=== PATIENT | male | born 1990 | race Caucasian/White ===

== ENCOUNTER → 2018-08-07 | Outpatient (CLI) | payer OTHER, SELFPAY ==
[~2018-08-07] MED LIST: /QUET10TA PO; FLUO20CA8 PO; VYVA30CA5 PO
== END ==
LOC: M OUTALCOH 08:04
PROVIDERS: ATTEND Psychiatry & Neurology Psychiatry
DX: Z03.89 Encounter for observation for other suspected diseases and conditions ruled out (principal)

== ENCOUNTER → 2020-03-25 | Outpatient (CLI) | payer MEDICAID ==
[~2020-03-25] MED LIST changes: -/QUET10TA PO; +SERO1TAB PO
== END ==
LOC: M OUTALCOH 09:00
PROVIDERS: ATTEND Psychiatry & Neurology Addiction Medicine
DX: F31.30 Bipolar disorder, current episode depressed, mild or moderate severity, unspecified (principal)

== ENCOUNTER 2020-04-01 10:00 | Outpatient (RCR) | payer MEDICAID, OTHER | END 2020-04-05 | LOC: M OUTALCOH 10:00 | PROVIDERS: ATTEND Psychiatry & Neurology Addiction Medicine | DX: F10.10 Alcohol abuse, uncomplicated (principal); F17.200 Nicotine dependence, unspecified, uncomplicated ==

== ENCOUNTER → 2020-04-05 | Outpatient (REF) | payer OTHER ==
[2020-04-05 14:08] LABS: BASO % 0.7 % (0.0-1.0); EOS # 0.1 10^3/uL (0.0-0.5); EOS % 3.4 % (0.0-3.0); HEMATOCRIT 48.1 % (42.0-52.0); LYMPH # 1.6 10^3/uL (1.5-5.0); LYMPH % 38.8 % (24.0-44.0); MEAN CORPUSCULAR HEMOGLOBIN 30.9 pg (27.0-33.0); MEAN CORPUSCULAR HGB CONC 33.3 g/dl (32.0-36.5); MEAN CORPUSCULAR VOLUME 92.9 fl (80.0-96.0); MONO # 0.6 10^3/uL (0.0-0.8); MONO % 14.4 % (0.0-5.0); NEUTROPHILS # 1.8 10^3/uL (1.5-8.5); NEUTROPHILS % 42.2 % (36.0-66.0); PLATELET COUNT, AUTOMATED 274 10^3/uL (150-450); RED BLOOD COUNT 5.18 10^6/uL (4.30-6.10); WHITE BLOOD COUNT 4.2 10^3/uL (4.0-10.0)
[2020-04-05 15:00] LABS: ALBUMIN 4.6 GM/DL (3.2-5.2); ALT/SGPT 32 U/L (12-78); BILIRUBIN,TOTAL 0.8 MG/DL (0.2-1.0); BLOOD UREA NITROGEN 10 MG/DL (7-18); CALCIUM LEVEL 9.3 MG/DL (8.5-10.1); CARBON DIOXIDE LEVEL 27 MEQ/L (21-32); CHLORIDE LEVEL 105 MEQ/L (98-107); CHOLESTEROL LEVEL 254 MG/DL (<200); CHOLESTEROL RISK RATIO 5.906 (<5); CREATININE FOR GFR 0.92 MG/DL (0.70-1.30); GLOMERULAR FILTRATION RATE > 60.0 (>60); GLUCOSE, FASTING 74 MG/DL (70-100); HDL CHOLESTEROL 43 MG/DL (>40); LDL CHOLESTEROL 178 MG/DL (<100); NON-HDL-C 211 MG/DL; POTASSIUM SERUM 4.4 MEQ/L (3.5-5.1); SODIUM LEVEL 140 MEQ/L (136-145); THYROID STIMULATING HORMONE 0.788 uIU/ML (0.358-3.740); TOTAL PROTEIN 7.9 GM/DL (6.4-8.2); TRIGLYCERIDES LEVEL 165 MG/DL (<150)
== END ==
LOC: M LABDRWAD 13:29
PROVIDERS: ATTEND Hospitalist
DX: F31.30 Bipolar disorder, current episode depressed, mild or moderate severity, unspecified (principal)

== ENCOUNTER 2020-04-30 10:00 | Outpatient (RCR) | payer MEDICAID, OTHER | END 2020-05-05 | LOC: M OUTALCOH 10:00 | PROVIDERS: ATTEND Psychiatry & Neurology Addiction Medicine | DX: F10.10 Alcohol abuse, uncomplicated (principal); F17.200 Nicotine dependence, unspecified, uncomplicated ==

== ENCOUNTER 2020-06-02 13:39 | Outpatient (RCR) | payer MEDICAID, OTHER | END 2020-06-05 | LOC: M OUTALCOH 13:39 | PROVIDERS: ATTEND Psychiatry & Neurology Addiction Medicine | DX: F10.10 Alcohol abuse, uncomplicated (principal); F17.200 Nicotine dependence, unspecified, uncomplicated ==

== ENCOUNTER 2020-06-21 08:00 | Outpatient (RCR) | payer OTHER | END 2020-07-05 | LOC: M OUTALCOH 08:00 | PROVIDERS: ATTEND Psychiatry & Neurology Addiction Medicine | DX: F10.20 Alcohol dependence, uncomplicated (principal); F17.200 Nicotine dependence, unspecified, uncomplicated ==

== ENCOUNTER 2020-10-21 21:15 | Inpatient (IN) | payer OTHER ==
[~2020-10-21] VITALS: Ht 175.3 cm; Wt 68.2 kg
[2020-10-21 21:53] LABS: HEMATOCRIT 47.3 % (42.0-52.0); HEMOGLOBIN 15.8 g/dl (13.5-17.5); MEAN CORPUSCULAR HEMOGLOBIN 30.6 pg (27.0-33.0); MEAN CORPUSCULAR HGB CONC 33.4 g/dl (32.0-36.5); MEAN CORPUSCULAR VOLUME 91.5 fl (80.0-96.0); PLATELET COUNT, AUTOMATED 281 10^3/uL (150-450); RED BLOOD COUNT 5.17 10^6/uL (4.30-6.10); WHITE BLOOD COUNT 7.5 10^3/uL (4.0-10.0)
[2020-10-21 22:15] LABS: AMPHETAMINES LEVEL URINE NEGATIVE (NEGATIVE); BARBITURATES URINE NEGATIVE (NEGATIVE); BENZODIAZEPINES URINE NEGATIVE (NEGATIVE); CANNABINOIDS URINE POSITIVE (NEGATIVE); COCAINE METABOLITE URINE NEGATIVE (NEGATIVE); METHADONE URINE NEGATIVE (NEGATIVE); OPIATES URINE NEGATIVE (NEGATIVE); PHENCYCLIDINE URINE NEGATIVE (NEGATIVE)
--- NOTE | 2020-10-21 22:38 | REPVR ---
PROCEDURE INFORMATION: Exam: CT Head Without Contrast Exam date and time: 10/21/2020 10:06 PM Age: 30 years old Clinical indication: Altered mental status/memory loss; Confusion or disorientation; Additional info: New onset psychosis TECHNIQUE: Imaging protocol: Computed tomography of the head without contrast. Radiation optimization: All CT scans at this facility use at least one of these dose optimization techniques: automated exposure control; mA and/or kV adjustment per patient size (includes targeted exams where dose is matched to clinical indication); or iterative reconstruction. COMPARISON: No relevant prior studies available. FINDINGS: Limitations: Patient motion. Brain: No definite acute intracranial hemorrhage. No midline shift or intracranial mass effect. Cerebral ventricles: No hydrocephalus. Bones/joints: No definite acute calvarial fracture. Paranasal sinuses: Visualized sinuses are unremarkable. No fluid levels. Mastoid air cells: Visualized mastoid air cells are well aerated. Soft tissues: Unremarkable. IMPRESSION: Patient motion without definite acute intracranial abnormality. Electronically signed by: Kali Gatica On 10/21/2020 22:38:30 PM
[2020-10-21 22:50] LABS: ACETAMINOPHEN LEVEL < 2.0 UG/ML (10.0-30.0); ALBUMIN 4.8 GM/DL (3.2-5.2); ALT/SGPT 23 U/L (12-78); BILIRUBIN,DIRECT 0.2 MG/DL (0.0-0.2); BILIRUBIN,TOTAL 0.5 MG/DL (0.2-1.0); BLOOD UREA NITROGEN 9 MG/DL (7-18); CALCIUM LEVEL 9.4 MG/DL (8.5-10.1); CARBON DIOXIDE LEVEL 27 MEQ/L (21-32); CHLORIDE LEVEL 108 MEQ/L (98-107); CREATININE FOR GFR 0.92 MG/DL (0.70-1.30); ETHYL ALCOHOL (ETHANOL) < 0.003 % (0.000-0.010); GLOMERULAR FILTRATION RATE > 60.0 (>60); GLUCOSE, FASTING 93 MG/DL (70-100); SALICYLATE LEVEL 2.5 MG/DL (5.0-30.0); SODIUM LEVEL 142 MEQ/L (136-145)
[2020-10-21] MEDS ORDERED: SERO1TAB PO (23:07)
[2020-10-21 23:47] LABS: RSV AMPLIFICATION NEGATIVE (NEGATIVE)
[2020-10-22] MEDS ORDERED: ACETAMINOPHEN TAB 650MG DOSE (2X325MG) PO PRN (00:05)
[2020-10-22] MEDS ORDERED: MOM 30ML SUSPENSION UDC PO PRN (00:05)
[2020-10-22] MEDS ORDERED: MAALOX 30 ML SUSP *UDC PO PRN (00:05)
[2020-10-22] MEDS ORDERED: LORazepam 2 MG TAB PO ONE (00:40)
[2020-10-22 02:07] VITALS: BP 132/73
[2020-10-22 06:00] VITALS: BP 115/58
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
[2020-10-22 16:13] VITALS: BP 140/83
[2020-10-22] MEDS: QUEtiapine FUMARATE 100 MG TAB PO PRN (21:40)
[2020-10-22] MEDS: hydrOXYzine 25 MG TAB PO PRN (21:53)
[2020-10-23 06:15] VITALS: BP 106/61
[2020-10-23 16:05] VITALS: BP 120/63
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
[2020-10-23] MEDS: QUEtiapine FUMARATE 100 MG TAB PO PRN (20:25)
[2020-10-24 06:24] VITALS: BP 104/59
--- NOTE | 2020-10-24 14:21 | MHIPNPDOC ---
[facility] Progress Note Progress Note DATE OF SERVICE: 10/24/20 HISTORY: ER evaluation as follows * Pt would like to refer to himself as "Ramon" during entire interview and gets angry if called by his given name. Pt reports that his vision became clear and he now knows his true calling, pt begins to explain that God the Father is his father and his name is in fact Ramon. Pt reports that God put him on this earth because; everyone needs to get to [facility]. He also states that he has healed multiple people of cancer. Pt states that "my light fixture servicer Raven knows I'm Ramon so, I'm not sure why she called the police". Pt reports that with so much vison that God his father has given him come's great responsibility. Pt recalls a time when he feels as though God stripped him of his vision and he had no purpose in life, now that his vision is back he doesn't want to disappoint God anymore. Pt goes into great detail on how he was put on this earth to proclaim miracles. Pt denies SI/HI/Self Inj. Pt states that he has tried to kill himself on occasion, does not go into detail on how he attempted or when but, does state "I am unable to kill myself; God won't let me until my purpose is done". Pt denies AH/VH. Pt reports okay appetite however, states that he does a spiritual fast and is unable to give me a conclusive answer. Pt reports good sleep. Pt reports that he lives with his earthly father. Pt reports that he does O/P through [facility] and his counselor is Sneha. He states that he has counseling sessions via [employer] and that he feels the government . Today: Numerous conversations reveal grandiose delusions but admission note reveals paranoid delusions. Patient is calm and pleasant but we willk need to also explore his followup care and living situation. I will begin pt on antipsychotic. Determination that pt. is not manic but had schizophrenia with grandiose and paranoid delusions. VITAL SIGNS: See below. NEW TEST RESULTS: None. CURRENT MEDICATIONS: See below. MENTAL STATUS EXAMINATION: Patient is a 30-year old male, who is, calm, but with serious paranoid and grandiose delusions. Speech: Is. No gross disturbance. Language skills are. No gross disturbance. Thought processes including: That he is Ramon. That he has the cure for cancer. Thought content: Paranoid and grandiose. Abstract reasoning, and computation: able to abstract. Description of associations:. No loose association. Description of abnormal or psychotic thoughts: Grandiose and paranoid psychotic thought. Judgment:, Poor. Insight:, Limited. Orientation: 3. Recent and remote memory: Unclear what he remembers. Attention span and concentration: Intact. Language:. No gross disturbance. Fund of knowledge: Reasonable but distorted. Mood: Euthymic. Affect: Congruent DIAGNOSES: 1. Schizophrenia. 2. None. 3.. None. ASSESSMENT: As above MANAGEMENT PLAN:. Will attempt to find where this patient has been living with his previous treatment's been and what are living options., I will prescribe antipsychotics, but do not know if patient will be compliant TIME SPENT:, 25 minutes. Vital Signs Vital Signs Date Time Temp Pulse Resp B/P (MAP) Pulse Ox O2 Delivery O2 Flow Rate FiO2 10/24/20 06:24 97.7 59 16 104/59 (74) 98 Room Air Current Medications Current Medications Medications (Trade) Dose Ordered Sig/Jordan Route PRN Reason Start Time Stop Time Status Last Admin Dose Admin Acetaminophen (Tylenol Tab) 650 mg Q6HP PRN PO HEADACHE or DISCOMFORT 10/22/20 00:05 Al Hydrox/Mg Hydrox/Simethicone (Mylanta) 30 ml Q4HP PRN PO HEARTBURN/INDIGESTION 10/22/20 00:05 Home Med (Med Rec Complete!) ASDIRECTED XX 10/21/20 23:10 10/21/20 23:12 DC Hydroxyzine HCl (Atarax) 25 mg BIDP PRN PO ANXIETY 10/22/20 21:45 10/22/20 21:53 Magnesium Hydroxide (Milk Of Magnesia) 30 ml DAILYPRN PRN PO CONSTIPATION 10/22/20 00:05 Quetiapine Fumarate (SEROquel) 100 mg QHSP PRN PO INSOMNIA 10/22/20 00:05 10/23/20 20:25 Trazodone HCl (Desyrel) 50 mg QHSP PRN PO INSOMNIA 10/22/20 00:05 Allergies Coded Allergies: No Known Allergies (Unverified , 12/22/12) KALPANA MCCLOUD MD Oct 24, 2020 14:21
[2020-10-24 16:12] VITALS: BP 129/73
[2020-10-24] MEDS: QUEtiapine FUMARATE 100 MG TAB PO PRN (21:05)
[2020-10-24] MEDS: OLANZapine 10 MG TAB PO SCH (21:05)
[2020-10-25 06:38] VITALS: BP 112/59
--- NOTE | 2020-10-25 14:53 | MHIPNPDOC ---
[facility] Progress Note Progress Note DATE OF SERVICE: 10/25/20 HISTORY: Patient with grandiose and paranoid delusions, sitting quietly in his room, unclear disappointment as to where when he is discharged he will go. Began him on neuroleptics. VITAL SIGNS: See below. NEW TEST RESULTS: None. CURRENT MEDICATIONS: See below. MENTAL STATUS EXAMINATION: Patient is a 30-year old male, who is quietly sitting in his room, no longer suicidal by statement. Speech: Is clear. No disturbance. Language skills are. No gross disturbance. Thought processes including: Continues to believe that he works with the [employer] and that he is Ramon. Thought content: As above. Abstract reasoning, and computation: Able to abstract. Description of associations:. No loose associations. Description of abnormal or psychotic thoughts: Grandiose and paranoid delusions. Working with the [employer] cures for cancer and that he is Ramon. Judgment: Poor Insight: Poor Orientation: 3. Recent and remote memory: Intact. Attention span and concentration: Intact. Language:. No disturbance. Fund of knowledge: Reasonable. Mood: Euthymic. Affect:, Congruent. DIAGNOSES: 1. Undifferentiated schizophrenia. ASSESSMENT: As above MANAGEMENT PLAN:. Again neuroleptics and will seek further historical information from family. TIME SPENT:, 25 minutes. Vital Signs Vital Signs Date Time Temp Pulse Resp B/P (MAP) Pulse Ox O2 Delivery O2 Flow Rate FiO2 10/25/20 06:38 97.5 65 16 112/59 (76) 98 Room Air Current Medications Current Medications Medications (Trade) Dose Ordered Sig/Jordan Route PRN Reason Start Time Stop Time Status Last Admin Dose Admin Acetaminophen (Tylenol Tab) 650 mg Q6HP PRN PO HEADACHE or DISCOMFORT 10/22/20 00:05 Al Hydrox/Mg Hydrox/Simethicone (Mylanta) 30 ml Q4HP PRN PO HEARTBURN/INDIGESTION 10/22/20 00:05 Home Med (Med Rec Complete!) ASDIRECTED XX 10/21/20 23:10 10/21/20 23:12 DC Hydroxyzine HCl (Atarax) 25 mg BIDP PRN PO ANXIETY 10/22/20 21:45 10/22/20 21:53 Magnesium Hydroxide (Milk Of Magnesia) 30 ml DAILYPRN PRN PO CONSTIPATION 10/22/20 00:05 Olanzapine (ZyPREXA) 10 mg QHS PO 10/24/20 21:00 10/24/20 21:05 Quetiapine Fumarate (SEROquel) 100 mg QHSP PRN PO INSOMNIA 10/22/20 00:05 10/24/20 21:05 Trazodone HCl (Desyrel) 50 mg QHSP PRN PO INSOMNIA 10/22/20 00:05 Allergies Coded Allergies: No Known Allergies (Unverified , 12/22/12) KALPANA MCCLOUD MD Oct 25, 2020 14:53
[2020-10-25 18:00] VITALS: BP 140/71
[2020-10-25] MEDS: QUEtiapine FUMARATE 100 MG TAB PO PRN (20:48)
[2020-10-25] MEDS: OLANZapine 10 MG TAB PO SCH (20:48)
[2020-10-26 06:35] VITALS: BP 138/87
--- NOTE | 2020-10-26 14:34 | MHIPNPDOC ---
[facility] Progress Note Progress Note DATE OF SERVICE: HISTORY: Patient with grandiose and paranoid delusions, sitting quietly in his room, unclear disappointment as to where when he is discharged he will go. Began him on neuroleptics. Need more historical information VITAL SIGNS: See below. NEW TEST RESULTS: None. CURRENT MEDICATIONS: See below. MENTAL STATUS EXAMINATION: Patient is a 30-year old male, who is quietly sitting in his room, no longer suicidal by statement. Speech: Is clear. No disturbance. Language skills are. No gross disturbance. Thought processes including: Continues to believe that he works with the [employer] and that he is Ramon. Thought content: As above. Abstract reasoning, and computation: Able to abstract. Description of associations:. No loose associations. Description of abnormal or psychotic thoughts: Grandiose and paranoid delusions. Working with the [employer] cures for cancer and that he is Ramon. Judgment: Poor Insight: Poor Orientation: 3. Recent and remote memory: Intact. Attention span and concentration: Intact. Language:. No disturbance. Fund of knowledge: Reasonable. Mood: Euthymic. Affect:, Congruent. DIAGNOSES: 1. Undifferentiated schizophrenia. ASSESSMENT: As above MANAGEMENT PLAN:. Again neuroleptics and will seek further historical information from family. TIME SPENT:, 25 minutes. Vital Signs Vital Signs Date Time Temp Pulse Resp B/P (MAP) Pulse Ox O2 Delivery O2 Flow Rate FiO2 10/26/20 06:35 97.7 68 16 138/87 (104) 98 Room Air Current Medications Current Medications Medications (Trade) Dose Ordered Sig/Jordan Route PRN Reason Start Time Stop Time Status Last Admin Dose Admin Acetaminophen (Tylenol Tab) 650 mg Q6HP PRN PO HEADACHE or DISCOMFORT 10/22/20 00:05 Al Hydrox/Mg Hydrox/Simethicone (Mylanta) 30 ml Q4HP PRN PO HEARTBURN/INDIGESTION 10/22/20 00:05 Home Med (Med Rec Complete!) ASDIRECTED XX 10/21/20 23:10 10/21/20 23:12 DC Hydroxyzine HCl (Atarax) 25 mg BIDP PRN PO ANXIETY 10/22/20 21:45 10/22/20 21:53 Magnesium Hydroxide (Milk Of Magnesia) 30 ml DAILYPRN PRN PO CONSTIPATION 3/19/21 00:05 Olanzapine (ZyPREXA) 10 mg QHS PO 10/24/20 21:00 10/25/20 20:48 Quetiapine Fumarate (SEROquel) 100 mg QHSP PRN PO INSOMNIA 10/22/20 00:05 10/25/20 20:48 Trazodone HCl (Desyrel) 50 mg QHSP PRN PO INSOMNIA 10/22/20 00:05 Allergies Coded Allergies: No Known Allergies (Unverified , 12/22/12) KALPANA MCCLOUD MD Oct 26, 2020 14:34
[2020-10-26 16:51] VITALS: BP 117/62
[2020-10-26] MEDS: OLANZapine 10 MG TAB PO SCH (20:45)
[2020-10-26] MEDS: traZODone 50 MG TAB PO PRN (20:45)
[2020-10-26] MEDS: QUEtiapine FUMARATE 100 MG TAB PO PRN (22:20)
--- NOTE | 2020-10-27 06:53 | MHIPNPDOC ---
[facility] Progress Note Progress Note DATE OF SERVICE: 10/27/20 HISTORY: Patient with grandiose and paranoid delusions, sitting quietly in his room, unclear disappointment as to where when he is discharged he will go. Began him on neuroleptics. Need more historical information. Will request more family information as it will pertain to disposition. Will assess if medication is having any effect on delusions. Mood is good though. VITAL SIGNS: See below. NEW TEST RESULTS: None. CURRENT MEDICATIONS: See below. MENTAL STATUS EXAMINATION: Patient is a 30-year old male, who is quietly sitting in his room, no longer suicidal by statement. Speech: Is clear. No disturbance. Language skills are. No gross disturbance. Thought processes including: Continues to believe that he works with the [employer] and that he is Ramon. Thought content: As above. Abstract reasoning, and computation: Able to abstract. Description of associations:. No loose associations. Description of abnormal or psychotic thoughts: Grandiose and paranoid delusions. Working with the [employer] cures for cancer and that he is Ramon. Judgment: Poor Insight: Poor Orientation: 3. Recent and remote memory: Intact. Attention span and concentration: Intact. Language:. No disturbance. Fund of knowledge: Reasonable. Mood: Euthymic. Affect:, Congruent. DIAGNOSES: 1. Undifferentiated schizophrenia. ASSESSMENT: As above MANAGEMENT PLAN:. Again neuroleptics and will seek further historical information from family. TIME SPENT:, 25 minutes. Vital Signs Vital Signs Date Time Temp Pulse Resp B/P (MAP) Pulse Ox O2 Delivery O2 Flow Rate FiO2 10/26/20 16:51 98.8 65 16 117/62 (80) 10/26/20 06:35 98 Room Air Current Medications Current Medications Medications (Trade) Dose Ordered Sig/Jordan Route PRN Reason Start Time Stop Time Status Last Admin Dose Admin Acetaminophen (Tylenol Tab) 650 mg Q6HP PRN PO HEADACHE or DISCOMFORT 10/22/20 00:05 Al Hydrox/Mg Hydrox/Simethicone (Mylanta) 30 ml Q4HP PRN PO HEARTBURN/INDIGESTION 10/22/20 00:05 Home Med (Med Rec Complete!) ASDIRECTED XX 10/21/20 23:10 10/21/20 23:12 DC Hydroxyzine HCl (Atarax) 25 mg BIDP PRN PO ANXIETY 10/22/20 21:45 3/19/21 21:53 Magnesium Hydroxide (Milk Of Magnesia) 30 ml DAILYPRN PRN PO CONSTIPATION 10/22/20 00:05 Olanzapine (ZyPREXA) 10 mg QHS PO 10/24/20 21:00 10/26/20 20:45 Quetiapine Fumarate (SEROquel) 100 mg QHSP PRN PO INSOMNIA 10/22/20 00:05 10/26/20 22:20 Trazodone HCl (Desyrel) 50 mg QHSP PRN PO INSOMNIA 10/22/20 00:05 10/26/20 20:45 Allergies Coded Allergies: No Known Allergies (Unverified , 12/22/12) KALPANA MCCLOUD MD Oct 27, 2020 06:53
[2020-10-27 06:55] VITALS: BP 94/53
[2020-10-27 16:58] VITALS: BP 141/76
[2020-10-27] MEDS: hydrOXYzine 25 MG TAB PO PRN (17:47)
[2020-10-27] MEDS: traZODone 50 MG TAB PO PRN (20:00)
[2020-10-27] MEDS: OLANZapine 10 MG TAB PO SCH (20:00)
[2020-10-28 06:54] VITALS: BP 118/63
--- NOTE | 2020-10-28 07:49 | MHIPNPDOC ---
[facility] Progress Note Progress Note DATE OF SERVICE: 10/28/20 HISTORY: Patient with grandiose and paranoid delusions, sitting quietly in his room, unclear as to where when he is discharged he will go. Began him on ne uroleptics. Need more historical information. Will request more family information as it will pertain to disposition. Will assess if medication is having any effect on delusions. Mood is good though. Will meet with team to discuss his disposition. VITAL SIGNS: See below. NEW TEST RESULTS: None. CURRENT MEDICATIONS: See below. MENTAL STATUS EXAMINATION: Patient is a 30-year old male, who is quietly sitting in his room, no longer suicidal by statement. Speech: Is clear. No disturbance. Language skills are. No gross disturbance. Thought processes including: Continues to believe that he works with the [employer] and that he is Ramon. Thought content: As above. Abstract reasoning, and computation: Able to abstract. Description of associations:. No loose associations. Description of abnormal or psychotic thoughts: Grandiose and paranoid delusions. 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 Judgment: Poor Insight: Poor Orientation: 3. Recent and remote memory: Intact. Attention span and concentration: Intact. Language:. No disturbance. Fund of knowledge: Reasonable. Mood: Euthymic. Affect:, Congruent. DIAGNOSES: 1. Undifferentiated schizophrenia. ASSESSMENT: As above MANAGEMENT PLAN:. Again neuroleptics and will seek further historical inf ormation from family. TIME SPENT:, 25 minutes. Vital Signs Vital Signs Date Time Temp Pulse Resp B/P (MAP) Pulse Ox O2 Delivery O2 Flow Rate FiO2 10/28/20 06:54 97.6 63 16 118/63 (81) 97 Room Air Current Medications Current Medications Medications (Trade) Dose Ordered Sig/Jordan Route PRN Reason Start Time Stop Time Status Last Admin Dose Admin Acetaminophen (Tylenol Tab) 650 mg Q6HP PRN PO HEADACHE or DISCOMFORT 10/22/20 00:05 Al Hydrox/Mg Hydrox/Simethicone (Mylanta) 30 ml Q4HP PRN PO HEARTBURN/INDIGESTION 10/22/20 00:05 Home Med (Med Rec Complete!) ASDIRECTED XX 10/21/20 23:10 10/21/20 23:12 DC Hydroxyzine HCl (Atarax) 25 mg BIDP PRN PO ANXIETY 10/22/20 21:45 10/27/20 17:47 Magnesium Hydroxide (Milk Of Magnesia) 30 ml DAILYPRN PRN PO CONSTIPATION 10/22/20 00:05 Olanzapine (ZyPREXA) 10 mg QHS PO 10/24/20 21:00 10/27/20 20:00 Quetiapine Fumarate (SEROquel) 100 mg QHSP PRN PO INSOMNIA 10/22/20 00:05 10/26/20 22:20 Trazodone HCl (Desyrel) 50 mg QHSP PRN PO INSOMNIA 10/22/20 00:05 10/27/20 20:00 Allergies Coded Allergies: No Known Allergies (Unverified , 12/22/12) KALPANA MCCLOUD MD Oct 28, 2020 07:49
[2020-10-28 18:26] VITALS: BP 126/72
[2020-10-28] MEDS: QUEtiapine FUMARATE 100 MG TAB PO PRN (20:36)
[2020-10-28] MEDS: OLANZapine 10 MG TAB PO SCH (20:36)
[2020-10-29 06:22] VITALS: BP 130/62
--- NOTE | 2020-10-29 06:45 | MHIPNPDOC ---
[facility] Progress Note Progress Note DATE OF SERVICE: 10/29/20 HISTORY: Patient with grandiose and paranoid delusions, sitting quietly in his room. Began him on neuroleptics. Patient has his own money. He states he is no longer suicidal. He states his family doesnt understand that he is Ramon. At this time he does not appear to be in any danger to himself or others. He has money for hotel use and I am told that is his choice for discharge placement. VITAL SIGNS: See below. NEW TEST RESULTS: None. CURRENT MEDICATIONS: See below. MENTAL STATUS EXAMINATION: Patient is a 30-year old male, who is quietly sitting in his room, no longer suicidal by statement. Speech: Is clear. No disturbance. Language skills are. No gross disturbance. Thought processes including: Continues to believe that he works with the [employer] and that he is Ramon. Thought content: As above. Abstract reasoning, and computation: Able to abstract. Description of associations:. No loose associations. Description of abnormal or psychotic thoughts: Grandiose and paranoid delusions. 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 Judgment: Poor Insight: Poor Orientation: 3. Recent and remote memory: Intact. Attention span and concentration: Intact. Language:. No disturbance. Fund of knowledge: Reasonable. Mood: Euthymic. Affect:, Congruent. DIAGNOSES: 1. Undifferentiated schizophrenia. ASSESSMENT: As above MANAGEMENT PLAN:.Evaluate for discharge with staff TIME SPENT:, 25 minutes. Vital Signs Vital Signs Date Time Temp Pulse Resp B/P (MAP) Pulse Ox O2 Delivery O2 Flow Rate FiO2 10/29/20 06:22 97.8 63 16 130/62 (84) 97 Room Air Current Medications Current Medications Medications (Trade) Dose Ordered Sig/Jordan Route PRN Reason Start Time Stop Time Status Last Admin Dose Admin Acetaminophen (Tylenol Tab) 650 mg Q6HP PRN PO HEADACHE or DISCOMFORT 10/22/20 00:05 Al Hydrox/Mg Hydrox/Simethicone (Mylanta) 30 ml Q4HP PRN PO HEARTBURN/INDIGESTION 10/22/20 00:05 Home Med (Med Rec Complete!) ASDIRECTED XX 10/21/20 23:10 10/21/20 23:12 DC Hydroxyzine HCl (Atarax) 25 mg BIDP PRN PO ANXIETY 10/22/20 21:45 10/27/20 17:47 Magnesium Hydroxide (Milk Of Magnesia) 30 ml DAILYPRN PRN PO CONSTIPATION 10/22/20 00:05 Olanzapine (ZyPREXA) 10 mg QHS PO 10/24/20 21:00 10/28/20 20:36 Quetiapine Fumarate (SEROquel) 100 mg QHSP PRN PO INSOMNIA 10/22/20 00:05 10/28/20 20:36 Trazodone HCl (Desyrel) 50 mg QHSP PRN PO INSOMNIA 10/22/20 00:05 10/27/20 20:00 Allergies Coded Allergies: No Known Allergies (Unverified , 12/22/12) KALPANA MCCLOUD MD Oct 29, 2020 06:45
[2020-10-29 16:43] VITALS: BP 127/70
[2020-10-29] MEDS: QUEtiapine FUMARATE 100 MG TAB PO PRN (21:31)
[2020-10-29] MEDS: OLANZapine 10 MG TAB PO SCH (21:31)
[2020-10-30 06:45] VITALS: BP 117/62
[2020-10-30 17:50] VITALS: BP 135/76
[2020-10-30] MEDS: QUEtiapine FUMARATE 100 MG TAB PO PRN (20:05)
[2020-10-30] MEDS: OLANZapine 10 MG TAB PO SCH (20:05)
--- NOTE | 2020-10-31 09:47 | MHIPNPDOC ---
[facility] Progress Note Progress Note DATE OF SERVICE: 10/31/20 HISTORY: Patient with grandiose and paranoid delusions, sitting quietly in his room. Began him on neuroleptics. Patient has his own money. He states he is no longer suicidal. He states his family doesnt understand that he is Ramon. At this time he does not appear to be in any danger to himself or others. He has money for hotel use and I am told that is his choice for discharge placement. Today pleasant and cooperative. He approves of the Seroquel which is helping him sleep. VITAL SIGNS: See below. NEW TEST RESULTS: None. CURRENT MEDICATIONS: See below. MENTAL STATUS EXAMINATION: Patient is a 30-year old male, who is quietly sitting in his room, no longer s uicidal by statement. Speech: Is clear. No disturbance. Language skills are. No gross disturbance. Thought processes including: Continues to believe that he works with the [employer] and that he is Ramon. Thought content: As above. Abstract reasoning, and computation: Able to abstrac t. Description of associations:. No loose associations. Description of abnormal or psychotic thoughts: Grandiose and paranoid delusions. 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 Judgment: Poor Insight: Poor Orientation: 3. Recent and remote memory: Intact. Attention span and concentration: Intact. Language:. No disturbance. Fund of knowledge: Reasonable. Mood: Euthymic. Affect:, Congruent. DIAGNOSES: 1. Undifferentiated schizophrenia. ASSESSMENT: As above MANAGEMENT PLAN:.Evaluate for discharge with staff TIME SPENT:, 25 minutes. Vital Signs Vital Signs Date Time Temp Pulse Resp B/P (MAP) Pulse Ox O2 Delivery O2 Flow Rate FiO2 10/31/20 08:12 Room Air 10/30/20 17:50 97.6 82 16 135/76 (95) 10/30/20 06:45 97 Current Medications Current Medications Medications (Trade) Dose Ordered Sig/Jordan Route PRN Reason Start Time Stop Time Status Last Admin Dose Admin Acetaminophen (Tylenol Tab) 650 mg Q6HP PRN PO HEADACHE or DISCOMFORT 10/22/20 00:05 Al Hydrox/Mg Hydrox/Simethicone (Mylanta) 30 ml Q4HP PRN PO HEARTBURN/INDIGESTION 10/22/20 00:05 Home Med (Med Rec Complete!) ASDIRECTED XX 10/21/20 23:10 10/21/20 23:12 DC Hydroxyzine HCl (Atarax) 25 mg BIDP PRN PO ANXIETY 10/22/20 21:45 10/27/20 17:47 Magnesium Hydroxide (Milk Of Magnesia) 30 ml DAILYPRN PRN PO CONSTIPATION 10/22/20 00:05 Olanzapine (ZyPREXA) 10 mg QHS PO 10/24/20 21:00 10/30/20 20:05 Quetiapine Fumarate (SEROquel) 100 mg QHSP PRN PO INSOMNIA 10/22/20 00:05 10/30/20 20:05 Trazodone HCl (Desyrel) 50 mg QHSP PRN PO INSOMNIA 10/22/20 00:05 10/27/20 20:00 Allergies Coded Allergies: No Known Allergies (Unverified , 12/22/12) KALPANA MCCLOUD MD Oct 31, 2020 09:47
[2020-10-31 17:27] VITALS: BP 118/63
[2020-10-31] MEDS: OLANZapine 10 MG TAB PO SCH (20:17)
[2020-10-31] MEDS: QUEtiapine FUMARATE 100 MG TAB PO PRN (20:17)
[2020-11-01 06:44] VITALS: BP 118/67
[2020-11-01 16:38] VITALS: BP 122/73
--- NOTE | 2020-11-01 17:39 | MHIPNPDOC ---
[facility] Progress Note Progress Note DATE OF SERVICE: 11/01/20 HISTORY: Patient with grandiose and paranoid delusions, sitting quietly in his room. Began him on neuroleptics. Patient has his own money. He states he is no longer suicidal. He states his family doesnt understand that he is Ramon. At this time he does not appear to be in any danger to himself or others. He has money for hotel use and I am told that is his choice for discharge placement. Today pleasant and cooperative. He approves of the Seroquel which is helping him sleep.Still delusioanal does not want to go back to the family. VITAL SIGNS: See below. NEW TEST RESULTS: None. CURRENT MEDICATIONS: See below. MENTAL STATUS EXAMINATION: Patient is a 30-year old male, who is quietly sitting in his room, no longer suicidal by statement. Speech: Is clear. No disturbance. Language skills are. No gross disturbance. Thought processes including: Continues to believe that he works with the [employer] and that he is Ramon. Thought content: As above. Abstract reasoning, and computation: Able to abstract. Description of associations:. No loose associations. Description of abnormal or psychotic thoughts: Grandiose and paranoid delusions. 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 Judgment: Poor Insight: Poor Orientation: 3. Recent and remote memory: Intact. Attention span and concentration: Intact. Language:. No disturbance. Fund of knowledge: Reasonable. Mood: Euthymic. Affect:, Congruent. DIAGNOSES: 1. Undifferentiated schizophrenia. ASSESSMENT: As above MANAGEMENT PLAN:.Evaluate for discharge with staff TIME SPENT:, 25 minutes. Vital Signs Vital Signs Date Time Temp Pulse Resp B/P (MAP) Pulse Ox O2 Delivery O2 Flow Rate FiO2 11/01/20 16:38 98.8 71 16 122/73 (89) 95 Room Air Current Medications Current Medications Medications (Trade) Dose Ordered Sig/Jordan Route PRN Reason Start Time Stop Time Status Last Admin Dose Admin Acetaminophen (Tylenol Tab) 650 mg Q6HP PRN PO HEADACHE or DISCOMFORT 10/22/20 00:05 Al Hydrox/Mg Hydrox/Simethicone (Mylanta) 30 ml Q4HP PRN PO HEARTBURN/INDIGESTION 10/22/20 00:05 Home Med (Med Rec Complete!) ASDIRECTED XX 10/21/20 23:10 10/21/20 23:12 DC Hydroxyzine HCl (Atarax) 25 mg BIDP PRN PO ANXIETY 10/22/20 21:45 10/27/20 17:47 Magnesium Hydroxide (Milk Of Magnesia) 30 ml DAILYPRN PRN PO CONSTIPATION 10/22/20 00:05 Olanzapine (ZyPREXA) 10 mg QHS PO 10/24/20 21:00 10/31/20 20:17 Quetiapine Fumarate (SEROquel) 100 mg QHSP PRN PO INSOMNIA 10/22/20 00:05 10/31/20 20:17 Trazodone HCl (Desyrel) 50 mg QHSP PRN PO INSOMNIA 10/22/20 00:05 10/27/20 20:00 Allergies Coded Allergies: No Known Allergies (Unverified , 12/22/12) AUSTYN VILLAFANA MD Nov 01, 2020 17:38
[2020-11-01] MEDS: QUEtiapine FUMARATE 100 MG TAB PO PRN (20:22)
[2020-11-01] MEDS: OLANZapine 10 MG TAB PO SCH (20:22)
[2020-11-02 06:28] VITALS: BP 135/72
[2020-11-02 16:35] VITALS: BP 120/62
[2020-11-02] MEDS: DIVALPROEX 500MG *ER* TAB PO SCH (20:29)
[2020-11-02] MEDS: QUEtiapine FUMARATE 100 MG TAB PO PRN (20:29)
[2020-11-02] MEDS: OLANZapine 10 MG TAB PO SCH (20:29)
--- NOTE | 2020-11-02 21:36 | MHIPN ---
PROGRESS NOTE DATE: 11/02/2020 SUBJECTIVE: Patient continues to be delusional, somewhat grandiose and is really just preoccupied. 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 He does not want to increase the dose of any of his medications, however, agreed to take Depakote. He is withdrawn. MENTAL STATUS EXAMINATION: Somewhat casually dressed. Cooperative. Made good eye contact. Speech rate and volume are good. Thought process linear, goal directed. Thought content; grandiose, really just preoccupied. Denied any suicidal or homicidal ideas. His insight and judgment are poor. Alert and oriented to time, place and person. His memory remote, recent, and immediate is good. DIAGNOSIS: Bipolar 1 disorder; most recent episode manic. Rule out psychosis not otherwise specified. Vital signs: Temperature 97.5, respiratory rate 18, pulse 100, blood pressure 120/62, pulse oximetry 95%. Labs: CBC within normal limits. CMP within normal limits. Toxicology was positive for cannabis. MEDICATIONS: 1. Olanzapine 10 mg at night. 2. Hydroxyzine 25 mg every 6 hours p.r.n. 3. Trazodone 50 mg q.h.s. p.r.n. 4. Seroquel 100 mg q.h.s. p.r.n. PLAN: Add: 1. Depakote ER 500 mg at night titrate the dose. ESTIMATED LENGTH OF STAY: 4 to 5 days. TIME SPENT ON THE PATIENT: 25 minutes.
[2020-11-03 06:36] VITALS: BP 131/67
--- NOTE | 2020-11-03 15:22 | MHIPNPDOC ---
[facility] Progress Note Progress Note DATE OF SERVICE: 11/03/20 Patient continues to be delusional, somewhat grandiose and is really just preoccupied. 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 He does not want to increase the dose of any of his medications, however, agreed to take Depakote. He is withdrawn. MENTAL STATUS EXAMINATION: Somewhat casually dressed. Cooperative. Made good eye contact. Speech rate and volume are good. Thought process linear, goal directed. Thought content; grandiose, really just preoccupied. Denied any suicidal or homicidal ideas. His insight and judgment are poor. Alert and oriented to time, place and person. His memory remote, recent, and immediate is good. DIAGNOSIS: Bipolar 1 disorder; most recent episode manic. Rule out psychosis not otherwise specified. VITAL SIGNS: See belo CURRENT MEDICATIONS: See below. ASSESSMENT:pt continues to be psychotic MANAGEMENT PLAN: increase zyprexa 15 mg HS TIME SPENT: 25 minutes. Vital Signs Vital Signs Date Time Temp Pulse Resp B/P (MAP) Pulse Ox O2 Delivery O2 Flow Rate FiO2 11/03/20 06:36 97.9 57 16 131/67 (88) 97 Room Air Current Medications Current Medications Medications (Trade) Dose Ordered Sig/Jordan Route PRN Reason Start Time Stop Time Status Last Admin Dose Admin Acetaminophen (Tylenol Tab) 650 mg Q6HP PRN PO HEADACHE or DISCOMFORT 10/22/20 00:05 Al Hydrox/Mg Hydrox/Simethicone (Mylanta) 30 ml Q4HP PRN PO HEARTBURN/INDIGESTION 10/22/20 00:05 Divalproex Sodium (Depakote Er) 500 mg QHS PO 11/02/20 21:00 11/02/20 20:29 Home Med (Med Rec Complete!) ASDIRECTED XX 10/21/20 23:10 10/21/20 23:12 DC Hydroxyzine HCl (Atarax) 25 mg BIDP PRN PO ANXIETY 10/22/20 21:45 10/27/20 17:47 Magnesium Hydroxide (Milk Of Magnesia) 30 ml DAILYPRN PRN PO CONSTIPATION 10/22/20 00:05 11/02/20 18:31 Olanzapine (ZyPREXA) 10 mg QHS PO 10/24/20 21:00 11/02/20 20:29 Quetiapine Fumarate (SEROquel) 100 mg QHSP PRN PO INSOMNIA 10/22/20 00:05 11/02/20 20:29 Trazodone HCl (Desyrel) 50 mg QHSP PRN PO INSOMNIA 10/22/20 00:05 10/27/20 20:00 Allergies Coded Allergies: No Known Allergies (Unverified , 12/22/12) AUSTYN VILLAFANA MD Nov 03, 2020 15:22
[2020-11-03 16:25] VITALS: BP 126/71
[2020-11-03] MEDS: DIVALPROEX 500MG *ER* TAB PO SCH (20:03)
[2020-11-03] MEDS: OLANZapine 10 MG TAB PO SCH (20:03)
[2020-11-03] MEDS: QUEtiapine FUMARATE 100 MG TAB PO PRN (20:04)
[2020-11-04 07:08] VITALS: BP 122/68
[2020-11-04] MEDS: OLANZapine 5 MG TAB PO SCH (08:37)
--- NOTE | 2020-11-04 11:13 | MHIPN ---
PROGRESS NOTE DATE: 11/04/2020 SUBJECTIVE: I want to get out from here. I don't want to stay some more days. I want to find my doctor. OBJECTIVE: He is a 30-year-old male who was admitted because of bizarre behavior and auditory hallucinations, who is really just preoccupied. Currently continues to be psychotic, withdrawn, however, there is no behavioral problem. MENTAL STATUS EXAMINATION: Casually dressed. Cooperative. Makes good eye contact. Angry. Agitated because he was told that he will be staying here more. Speech rate, rhythm and volume are good, somewhat loud. Mood is angry. Affect is mood congruent. Denied any suicidal or homicidal ideas. His insight and judgment are impaired. Vital signs: Temperature 96.9, pulse 94, respirations 16, blood pressure 122/68, pulse oximetry 97%. REVIEW OF SYSTEMS: Denied chest pain or palpitations. Denied abdominal pain or dysuria. Denied shortness of breath or cough. Denied dizziness. DIAGNOSIS: Bipolar 1 disorder; most recent episode manic with psychotic features. Rule out psychotic disorder NOS. PLAN: Continue current medications. Convert him to 2 PC. MTDD
[2020-11-04] MEDS: hydrOXYzine 25 MG TAB PO PRN (12:44)
[2020-11-04 16:14] VITALS: BP 124/67
[2020-11-04] MEDS: DIVALPROEX 500MG *ER* TAB PO SCH (20:33)
[2020-11-04] MEDS: QUEtiapine FUMARATE 100 MG TAB PO PRN (20:33)
[2020-11-04] MEDS: OLANZapine 10 MG TAB PO SCH (20:33)
[2020-11-05 06:00] VITALS: BP 134/65
[2020-11-05] MEDS: OLANZapine 5 MG TAB PO SCH (08:24)
[2020-11-05] MEDS: hydrOXYzine 25 MG TAB PO PRN (12:30)
--- NOTE | 2020-11-05 14:51 | MHIPNPDOC ---
[facility] Progress Note Progress Note DATE OF SERVICE: 11/05/20 Patient continues to be delusional, somewhat grandiose and is really just preoccupied. 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 He does not want to take any medications but taking it get discharged. He is withdrawn. No behavioral issues on the unit. compliant with medications. MENTAL STATUS EXAMINATION: Somewhat casually dressed. Cooperative. Made good eye contact. Speech rate and volume are good. Thought process linear, goal directed. Thought content; grandiose, really just preoccupied. Denied any suicidal or homicidal ideas. His insight and judgment are poor. Alert and oriented to time, place and person. His memory remote, recent, and immediate is good. DIAGNOSIS: Bipolar 1 disorder; most recent episode manic. Rule out psychosis not otherwise specified. VITAL SIGNS: See below CURRENT MEDICATIONS: See below. ASSESSMENT:pt continues to be psychotic MANAGEMENT PLAN: continue Zyprexa 15 mg daily TIME SPENT: 25 minutes. Vital Signs Vital Signs Date Time Temp Pulse Resp B/P (MAP) Pulse Ox O2 Delivery O2 Flow Rate FiO2 11/05/20 10:58 Room Air 11/05/20 06:00 98.5 76 20 134/65 (88) 96 Current Medications Current Medications Medications (Trade) Dose Ordered Sig/Jordan Route PRN Reason Start Time Stop Time Status Last Admin Dose Admin Acetaminophen (Tylenol Tab) 650 mg Q6HP PRN PO HEADACHE or DISCOMFORT 10/22/20 00:05 Al Hydrox/Mg Hydrox/Simethicone (Mylanta) 30 ml Q4HP PRN PO HEARTBURN/INDIGESTION 10/22/20 00:05 Divalproex Sodium (Depakote Er) 500 mg QHS PO 11/02/20 21:00 11/04/20 20:33 Home Med (Med Rec Complete!) ASDIRECTED XX 10/21/20 23:10 10/21/20 23:12 DC Hydroxyzine HCl (Atarax) 25 mg BIDP PRN PO ANXIETY 10/22/20 21:45 11/05/20 12:30 Magnesium Hydroxide (Milk Of Magnesia) 30 ml DAILYPRN PRN PO CONSTIPATION 10/22/20 00:05 11/02/20 18:31 Olanzapine (ZyPREXA) 5 mg DAILY PO 11/04/20 09:00 11/05/20 08:24 Olanzapine (ZyPREXA) 10 mg QHS PO 10/24/20 21:00 11/04/20 20:33 Quetiapine Fumarate (SEROquel) 100 mg QHSP PRN PO INSOMNIA 10/22/20 00:05 11/04/20 20:33 Trazodone HCl (Desyrel) 50 mg QHSP PRN PO INSOMNIA 10/22/20 00:05 10/27/20 20:00 Allergies Coded Allergies: No Known Allergies (Unverified , 12/22/12) AUSTYN VILLAFANA MD Nov 05, 2020 14:51
[2020-11-05 16:13] VITALS: BP 119/62
[2020-11-05] MEDS: OLANZapine 10 MG TAB PO SCH (20:06)
[2020-11-05] MEDS: DIVALPROEX 500MG *ER* TAB PO SCH (20:06)
[2020-11-06 06:28] VITALS: BP 128/65
[2020-11-06] MEDS: OLANZapine 5 MG TAB PO SCH (08:02)
[2020-11-06 08:24] VITALS: BP 128/65
[2020-11-06 16:19] VITALS: BP 125/68
[2020-11-06] MEDS: QUEtiapine FUMARATE 100 MG TAB PO PRN (20:02)
[2020-11-06] MEDS: DIVALPROEX 500MG *ER* TAB PO SCH (20:02)
[2020-11-06] MEDS: OLANZapine 10 MG TAB PO SCH (20:02)
[2020-11-07 06:23] VITALS: BP 124/66
[2020-11-07] MEDS: OLANZapine 5 MG TAB PO SCH (08:21)
[2020-11-07] MEDS: hydrOXYzine 25 MG TAB PO PRN (11:47)
[2020-11-07 16:28] VITALS: BP 130/74
[2020-11-07] MEDS: OLANZapine 10 MG TAB PO SCH (20:48)
[2020-11-07] MEDS: QUEtiapine FUMARATE 100 MG TAB PO PRN (20:48)
[2020-11-07] MEDS: DIVALPROEX 500MG *ER* TAB PO SCH (20:48)
[2020-11-08 06:00] VITALS: BP 156/81
[2020-11-08] MEDS: OLANZapine 5 MG TAB PO SCH (08:19)
--- NOTE | 2020-11-08 08:44 | MHIPNPDOC ---
[facility] Progress Note Progress Note DATE OF SERVICE: 11/08/20 Patient continues to have some residual delusions, somewhat grandiose and is religiously preoccupied. 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 He does not want to take any medications but taking it get discharged. He is withdrawn. No behavioral issues on the unit. compliant with medications.Today less intrusive, no behavioral issues on the unit. MENTAL STATUS EXAMINATION: Somewhat casually dressed. Cooperative. Made good eye contact. Speech rate and volume are good. Thought process linear, goal directed. Thought content; grandiose, really just preoccupied. Denied any suicidal or homicidal ideas. His insight and judgment are poor. Alert and oriented to time, place and person. His memory remote, recent, and immediate is good. DIAGNOSIS: Bipolar 1 disorder; most recent episode manic. Rule out psychosis not otherwise specified. VITAL SIGNS: See below CURRENT MEDICATIONS: See below. ASSESSMENT:pt continues to be psychotic MANAGEMENT PLAN: continue Zyprexa 15 mg daily TIME SPENT: 25 minutes. Vital Signs Vital Signs Date Time Temp Pulse Resp B/P (MAP) Pulse Ox O2 Delivery O2 Flow Rate FiO2 11/08/20 06:00 97.9 69 20 156/81 (106) 96 11/07/20 16:28 Room Air Current Medications Current Medications Medications (Trade) Dose Ordered Sig/Jordan Route PRN Reason Start Time Stop Time Status Last Admin Dose Admin Acetaminophen (Tylenol Tab) 650 mg Q6HP PRN PO HEADACHE or DISCOMFORT 10/22/20 00:05 Al Hydrox/Mg Hydrox/Simethicone (Mylanta) 30 ml Q4HP PRN PO HEARTBURN/INDIGESTION 10/22/20 00:05 Divalproex Sodium (Depakote Er) 500 mg QHS PO 11/02/20 21:00 11/07/20 20:48 Home Med (Med Rec Complete!) ASDIRECTED XX 10/21/20 23:10 10/21/20 23:12 DC Hydroxyzine HCl (Atarax) 25 mg BIDP PRN PO ANXIETY 10/22/20 21:45 11/07/20 11:47 Magnesium Hydroxide (Milk Of Magnesia) 30 ml DAILYPRN PRN PO CONSTIPATION 10/22/20 00:05 11/02/20 18:31 Olanzapine (ZyPREXA) 5 mg DAILY PO 11/04/20 09:00 11/08/20 08:19 Olanzapine (ZyPREXA) 10 mg QHS PO 10/24/20 21:00 11/07/20 20:48 Quetiapine Fumarate (SEROquel) 100 mg QHSP PRN PO INSOMNIA 10/22/20 00:05 11/07/20 20:48 Trazodone HCl (Desyrel) 50 mg QHSP PRN PO INSOMNIA 10/22/20 00:05 10/27/20 20:00 Allergies Coded Allergies: No Known Allergies (Unverified , 12/22/12) AUSTYN VILLAFANA MD Nov 08, 2020 08:44
[2020-11-08] MEDS: hydrOXYzine 25 MG TAB PO PRN (14:33)
[2020-11-08 18:53] VITALS: BP 123/72
[2020-11-08] MEDS: DIVALPROEX 500MG *ER* TAB PO SCH (20:03)
[2020-11-08] MEDS: QUEtiapine FUMARATE 100 MG TAB PO PRN (20:03)
[2020-11-08] MEDS: OLANZapine 10 MG TAB PO SCH (20:03)
[2020-11-09 07:18] VITALS: BP 125/69
[2020-11-09] MEDS: OLANZapine 5 MG TAB PO SCH (08:02)
--- NOTE | 2020-11-09 13:48 | MHIPNPDOC ---
[facility] Progress Note Progress Note DATE OF SERVICE: 11/09/20 Patient continues to have some residual delusions, somewhat grandiose and is religiously preoccupied. 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 He does not want to take any medications but taking it get discharged. He is withdrawn. No behavioral issues on the unit. compliant with medications.Today less intrusive, no behavioral issues on the unit. Can be discharged after observing for 24 hours. MENTAL STATUS EXAMINATION: Somewhat casually dressed. Cooperative. Made good eye contact. Speech rate and volume are good. Thought process linear, goal directed. Thought content; grandiose, really just preoccupied. Denied any suicidal or homicidal ideas. His insight and judgment are poor. Alert and oriented to time, place and person. His memory remote, recent, and immediate is good. DIAGNOSIS: Bipolar 1 disorder; most recent episode manic. Rule out psychosis not otherwise specified. VITAL SIGNS: See below CURRENT MEDICATIONS: See below. ASSESSMENT:pt continues to be psychotic MANAGEMENT PLAN: continue Zyprexa 15 mg daily TIME SPENT: 25 minutes. Vital Signs Vital Signs Date Time Temp Pulse Resp B/P (MAP) Pulse Ox O2 Delivery O2 Flow Rate FiO2 11/09/20 07:18 97.6 60 14 125/69 (87) 98 Room Air Current Medications Current Medications Medications (Trade) Dose Ordered Sig/Jordan Route PRN Reason Start Time Stop Time Status Last Admin Dose Admin Acetaminophen (Tylenol Tab) 650 mg Q6HP PRN PO HEADACHE or DISCOMFORT 10/22/20 00:05 Al Hydrox/Mg Hydrox/Simethicone (Mylanta) 30 ml Q4HP PRN PO HEARTBURN/INDIGESTION 10/22/20 00:05 Divalproex Sodium (Depakote Er) 500 mg QHS PO 11/02/20 21:00 11/08/20 20:03 Home Med (Med Rec Complete!) ASDIRECTED XX 10/21/20 23:10 10/21/20 23:12 DC Hydroxyzine HCl (Atarax) 25 mg BIDP PRN PO ANXIETY 10/22/20 21:45 11/08/20 14:33 Magnesium Hydroxide (Milk Of Magnesia) 30 ml DAILYPRN PRN PO CONSTIPATION 10/22/20 00:05 11/02/20 18:31 Olanzapine (ZyPREXA) 5 mg DAILY PO 11/04/20 09:00 11/09/20 08:02 Olanzapine (ZyPREXA) 10 mg QHS PO 10/24/20 21:00 11/08/20 20:03 Quetiapine Fumarate (SEROquel) 100 mg QHSP PRN PO INSOMNIA 10/22/20 00:05 11/08/20 20:03 Trazodone HCl (Desyrel) 50 mg QHSP PRN PO INSOMNIA 10/22/20 00:05 10/27/20 20:00 Allergies Coded Allergies: No Known Allergies (Unverified , 12/22/12) AUSTYN VILLAFANA MD Nov 09, 2020 13:48
[2020-11-09 18:03] VITALS: BP 136/67
[2020-11-09] MEDS: OLANZapine 10 MG TAB PO SCH (20:04)
[2020-11-09] MEDS: QUEtiapine FUMARATE 100 MG TAB PO PRN (20:04)
[2020-11-09] MEDS: DIVALPROEX 500MG *ER* TAB PO SCH (20:04)
[2020-11-10 06:00] VITALS: BP 127/87
[2020-11-10] MEDS ORDERED: OLAN5TAB PO (08:06)
[2020-11-10] MEDS ORDERED: OLAN10TA2 PO (08:06)
[2020-11-10] MEDS ORDERED: DEPA500T2 PO (08:06)
[2020-11-10] MEDS: OLANZapine 5 MG TAB PO SCH (08:33)
--- NOTE | 2020-11-10 11:37 | MHDS ---
[facility] DISCHARGE SUMMARY DATE OF ADMISSION: 10/21/2020 DATE OF DISCHARGE: 11/10/2020 DIAGNOSIS: Psychotic disorder NOS, rule out bipolar 1 disorder with psychotic features. IDENTIFYING DATA: Patient is a 30-year-old male who was admitted because of bizarre behavior, sending messages to his mother that he is going to , God is going to kill him. He was religiously preoccupied. HISTORY OF PRESENT ILLNESS/PAST PSYCHIATRIC HISTORY/PERSONAL HISTORY/MEDICAL HISTORY/SUBSTANCE ABUSE HISTORY: For details, please refer to the initial evaluation. COURSE IN THE HOSPITAL: Patient initially was somewhat bizarre, expressing his bizarre delusions that he is Ramon and God has sent him here, somewhat grandiose and also preoccupied. He was placed on Zyprexa and later on Depakote. Patient made some recovery, however, his residual delusions persisted. He never had behavior problems on the unit. Since the patient was asking for discharge and he has been no threat to himself or others and there is no prior history of violence, he was discharged. His sleep and appetite was good. He interacted well with the staff. He interacted well with his peers. MENTAL STATUS EXAMINATION: Casually dressed. Cooperative. Made good eye contact. Speech rate, rhythm, volume are good. Thought process linear, goal directed. Thought content; has some residual delusions which are of sabianist nature. Denied any suicidal or homicidal ideas. His insight and judgment were partial. He is alert and oriented to time, place and person. His memory immediate, remote, recent are good. Vital Signs: Temperature 98.6, pulse 88, respirations 18, blood pressure 127/87, pulse oximetry 98%. Labs: CBC and CMP within normal limits. Toxicology: Positive for cannabis. DISCHARGE MEDICATIONS: 1. Depakote ER 500 mg at night. 2. Zyprexa 15 mg at night. PLAN: The plan is to discharge him home. He will be followed up at [facility] behavioral health services. KELLY
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
== END 2020-11-10 11:10 | disposition home or self-care (01) | DRG 753 ==
LOC: M ED 21:15 → M ED INP 21:16 → M PSY 10-22 01:15
PROVIDERS: ADMIT Psychiatry & Neurology Psychiatry; ATTEND Psychiatry & Neurology Psychiatry
DX: F31.2 Bipolar disorder, current episode manic severe with psychotic features (principal); F20.3 Undifferentiated schizophrenia; Z20.822 Contact with and (suspected) exposure to COVID-19; F10.21 Alcohol dependence, in remission; Z79.899 Other long term (current) drug therapy; F17.200 Nicotine dependence, unspecified, uncomplicated

== ENCOUNTER 2023-06-09 11:55 | Emergency (ER) | payer MEDICAID, OTHER, SELFPAY ==
[~2023-06-09] VITALS: Ht 177.8 cm; Wt 65.4 kg
[~2023-06-09 11:55] MED LIST changes: +DEPA500T2 PO; +OLAN1TAB16 PO; +OLAN1TAB20 PO
[2023-06-09] MEDS ORDERED: ACET-1349 PO (12:07)
[2023-06-09] MEDS ORDERED: KETOROLAC 30 MG/ML 1ML VIAL IV ONE (12:45)
[2023-06-09 12:58] LABS: BASO % 0.6 % (0.0-1.0); EOS # 0.1 10^3/uL (0.0-0.5); EOS % 1.3 % (0.0-3.0); HEMATOCRIT 38.6 % (42.0-52.0); LYMPH # 1.3 10^3/uL (1.5-5.0); LYMPH % 21.5 % (24.0-44.0); MEAN CORPUSCULAR HEMOGLOBIN 30.8 pg (27.0-33.0); MEAN CORPUSCULAR HGB CONC 33.7 g/dl (32.0-36.5); MEAN CORPUSCULAR VOLUME 91.5 fl (80.0-96.0); MONO # 0.5 10^3/uL (0.0-0.8); MONO % 8.5 % (2.0-8.0); NEUTROPHILS # 4.2 10^3/uL (1.5-8.5); NEUTROPHILS % 67.8 % (36.0-66.0); PLATELET COUNT, AUTOMATED 249 10^3/uL (150-450); RED BLOOD COUNT 4.22 10^6/uL (4.30-6.10); WHITE BLOOD COUNT 6.2 10^3/uL (4.0-10.0)
[2023-06-09 13:19] LABS: CK-MB VALUE MASS < 1.0 NG/ML (<3.6)
[2023-06-09 13:20] LABS: BLOOD UREA NITROGEN 11 MG/DL (9-23); CALCIUM LEVEL 8.8 MG/DL (8.5-10.1); CARBON DIOXIDE LEVEL 28 MMOL/L (20-31); CHLORIDE LEVEL 106 MMOL/L (98-107); CPK CREATINE PHOSPHOKINASE 164 U/L (46-171); CREATININE FOR GFR 0.58 MG/DL (0.70-1.30); GLOMERULAR FILTRATION RATE > 60.0 (>60); GLUCOSE, FASTING 140 MG/DL (60-100); POTASSIUM SERUM 3.9 MMOL/L (3.5-5.1); SODIUM LEVEL 141 MMOL/L (136-145)
[2023-06-09] MEDS ORDERED: ISOVUE-370 76% 100ML VIAL As Ordered ONE (13:35)
[2023-06-09] MEDS ORDERED: KETO10TAB PO (15:32)
[2023-06-09 16:35] VITALS: BP 128/67; TEMP 97; O2SAT 97
== END 2023-06-09 16:48 | disposition home or self-care (01) ==
LOC: M ED 11:55 → EDBD 11:55 → M ED 16:48
DX: R07.89 Other chest pain (principal); Z79.1 Long term (current) use of non-steroidal anti-inflammatories (NSAID); Z79.899 Other long term (current) drug therapy
CPT/HCPCS: 70498; 71045; 71275; 80048; 82550; 82553; 85025; 93005; 93041; 94760; 96374; 99285; J1885; Q9967

== ENCOUNTER 2023-06-13 19:08 | Inpatient (IN) | payer MEDICAID, SELFPAY ==
[~2023-06-13] VITALS: Ht 175.3 cm; Wt 61.4 kg
[~2023-06-13 19:08] MED LIST changes: +ACET-1349 PO; +KETO10TAB PO
[2023-06-13 21:05] LABS: HEMATOCRIT 41.8 % (42.0-52.0); HEMOGLOBIN 14.6 g/dl (13.5-17.5); MEAN CORPUSCULAR HEMOGLOBIN 31.6 pg (27.0-33.0); MEAN CORPUSCULAR HGB CONC 34.9 g/dl (32.0-36.5); MEAN CORPUSCULAR VOLUME 90.5 fl (80.0-96.0); PLATELET COUNT, AUTOMATED 283 10^3/uL (150-450); RED BLOOD COUNT 4.62 10^6/uL (4.30-6.10); WHITE BLOOD COUNT 6.1 10^3/uL (4.0-10.0)
[2023-06-13 21:20] LABS: AMPHETAMINES LEVEL URINE NEGATIVE (NEGATIVE); BARBITURATES URINE NEGATIVE (NEGATIVE); BENZODIAZEPINES URINE NEGATIVE (NEGATIVE); COCAINE METABOLITE URINE NEGATIVE (NEGATIVE); METHADONE URINE NEGATIVE (NEGATIVE); OPIATES URINE NEGATIVE (NEGATIVE); PHENCYCLIDINE URINE NEGATIVE (NEGATIVE)
[2023-06-13 21:21] LABS: CANNABINOIDS URINE POSITIVE (NEGATIVE); ETHYL ALCOHOL (ETHANOL) < 0.003 % (0.000-0.010)
[2023-06-13 21:22] LABS: SALICYLATE LEVEL < 3.0 MG/DL (<30)
[2023-06-13 21:23] LABS: ALBUMIN 4.5 G/DL (3.2-5.2); ALKALINE PHOSPHATASE 55 U/L (46-116); ALT/SGPT 59 U/L (7.0-40); AST/SGOT 34 U/L (<34); BILIRUBIN,DIRECT 0.2 MG/DL (<0.4); BILIRUBIN,TOTAL 0.6 MG/DL (0.3-1.2); BLOOD UREA NITROGEN 25 MG/DL (9-23); CALCIUM LEVEL 9.4 MG/DL (8.5-10.1); CARBON DIOXIDE LEVEL 30 MMOL/L (20-31); CHLORIDE LEVEL 102 MMOL/L (98-107); CREATININE FOR GFR 0.85 MG/DL (0.70-1.30); GLOMERULAR FILTRATION RATE > 60.0 (>60); GLUCOSE, FASTING 101 MG/DL (60-100); POTASSIUM SERUM 4.3 MMOL/L (3.5-5.1); SODIUM LEVEL 139 MMOL/L (136-145); TOTAL PROTEIN 7.6 G/DL (5.7-8.2)
[2023-06-13 21:26] LABS: THYROID STIMULATING HORMONE 4.903 uIU/ML (0.55-4.78)
[2023-06-13] MEDS ORDERED: HOME MED LIST COMPLETE! XX SCH (22:10)
[2023-06-14] MEDS ORDERED: diphenhydrAMINE 25MG CAP PO PRN (13:25)
[2023-06-14] MEDS ORDERED: MOM 30ML SUSPENSION UDC PO PRN (13:25)
[2023-06-14] MEDS ORDERED: traZODone 50 MG TAB PO PRN (13:25)
[2023-06-14] MEDS ORDERED: OLANZapine ORAL DISINTEGRATING TAB 5MG PO PRN (13:25)
[2023-06-14] MEDS ORDERED: MAALOX 30 ML SUSP *UDC PO PRN (13:25)
[2023-06-14] MEDS ORDERED: ACETAMINOPHEN TAB 650MG DOSE (2X325MG) PO PRN (13:25)
[2023-06-14] MEDS: IBUPROFEN 400MG TAB PO PRN (20:18)
[2023-06-15 06:34] VITALS: BP 110/63; TEMP 97.6; O2SAT 96
[2023-06-15] MEDS: IBUPROFEN 400MG TAB PO PRN (14:06)
[2023-06-15 17:42] VITALS: BP 123/90; TEMP 98.1; O2SAT 93
[2023-06-15] MEDS: OLANZapine 5 MG TAB PO SCH (20:44)
[2023-06-16 06:27] VITALS: BP 126/63; TEMP 97.7; O2SAT 97
[2023-06-16] MEDS: OLANZapine 5 MG TAB PO SCH ×2 (09:19→21:00)
[2023-06-16] MEDS: IBUPROFEN 400MG TAB PO PRN (17:54)
[2023-06-16 18:18] VITALS: BP 138/77; TEMP 98.6; O2SAT 97
[2023-06-17 06:46] VITALS: BP 115/66; TEMP 97.8; O2SAT 97
[2023-06-17] MEDS: OLANZapine 5 MG TAB PO SCH ×2 (09:00→20:00)
[2023-06-17] MEDS: IBUPROFEN 400MG TAB PO PRN (18:23)
[2023-06-17 18:25] VITALS: BP 122/70; TEMP 98.5; O2SAT 95
[2023-06-18 06:31] VITALS: BP 126/71; TEMP 98.1; O2SAT 99
[2023-06-18] MEDS: OLANZapine 5 MG TAB PO SCH ×2 (09:00→20:09)
[2023-06-18 18:33] VITALS: BP 137/69; TEMP 98.7; O2SAT 98
[2023-06-19 06:51] VITALS: BP 108/73; TEMP 97.5; O2SAT 98
[2023-06-19] MEDS: OLANZapine 5 MG TAB PO SCH ×2 (08:00→20:48)
[2023-06-19 14:47] VITALS: BP 130/75; TEMP 99.6; O2SAT 96
[2023-06-20 06:38] VITALS: BP 114/68; TEMP 97.7; O2SAT 97
[2023-06-20] MEDS: OLANZapine 5 MG TAB PO SCH (07:57)
[2023-06-20] MEDS ORDERED: OLAN1TAB16 PO (09:31)
== END 2023-06-20 11:42 | disposition home or self-care (01) | DRG 750 ==
LOC: M ED 19:08 → M ED INP 06-14 13:24 → M PSY 06-14 15:56
PROVIDERS: ADMIT Student in an Organized Health Care Education/Training Program; ATTEND Student in an Organized Health Care Education/Training Program
DX: F20.9 Schizophrenia, unspecified (principal); F12.90 Cannabis use, unspecified, uncomplicated; Z87.891 Personal history of nicotine dependence; Z81.8 Family history of other mental and behavioral disorders; Z81.1 Family history of alcohol abuse and dependence; F31.9 Bipolar disorder, unspecified; Z20.822 Contact with and (suspected) exposure to COVID-19; Z56.0 Unemployment, unspecified; Z71.51 Drug abuse counseling and surveillance of drug abuser; Z62.810 Personal history of physical and sexual abuse in childhood; Z62.811 Personal history of psychological abuse in childhood; Z63.8 Other specified problems related to primary support group

== ENCOUNTER 2024-04-01 01:41 | Emergency (ER) | payer OTHER ==
[~2024-04-01] VITALS: Ht 175.3 cm; Wt 67.9 kg
[2024-04-01 01:42] VITALS: TEMP 98.4
[2024-04-01 04:59] VITALS: BP 104/59
[2024-04-01 06:11] VITALS: O2SAT 97
[2024-04-01] MEDS ORDERED: IBUP-1022 PO (06:26)
[2024-04-01] MEDS ORDERED: ACET325C5 PO (06:26)
[2024-04-01] MEDS: BENZOCAINE 20% GEL 9GM TUBE (ANBESOL MAX STRENGTH) TOP ONE (06:42)
[2024-04-01] MEDS: IBUPROFEN 600MG TAB PO ONE (06:42)
== END 2024-04-01 06:49 | disposition home or self-care (01) ==
LOC: M ED 01:41 → MERGE 01:41 → M ED 06:49
DX: K02.9 Dental caries, unspecified (principal); Z79.899 Other long term (current) drug therapy

== ENCOUNTER 2024-04-07 14:44 | Emergency (ER) | payer OTHER ==
[~2024-04-07] VITALS: Ht 175.3 cm; Wt 66.0 kg
[~2024-04-07 14:44] MED LIST changes: +ACET325C5 PO; +IBUP-1022 PO
[2024-04-07] MEDS ORDERED: ACETAMINOPHEN TAB 650MG DOSE (2X325MG) PO ONE (17:00)
[2024-04-07] MEDS: NS 1,000 ML IV ONE (17:19)
[2024-04-07 17:39] LABS: BASO % 0.6 % (0.0-1.0); EOS % 0.3 % (0.0-3.0); HEMATOCRIT 43.6 % (42.0-52.0); LYMPH # 1.3 10^3/uL (1.5-5.0); LYMPH % 21.1 % (24.0-44.0); MEAN CORPUSCULAR HEMOGLOBIN 31.5 pg (27.0-33.0); MEAN CORPUSCULAR HGB CONC 34.4 g/dl (32.0-36.5); MEAN CORPUSCULAR VOLUME 91.6 fl (80.0-96.0); MONO # 0.5 10^3/uL (0.0-0.8); MONO % 7.6 % (2.0-8.0); NEUTROPHILS # 4.5 10^3/uL (1.5-8.5); NEUTROPHILS % 70.1 % (36.0-66.0); PLATELET COUNT, AUTOMATED 206 10^3/uL (150-450); RED BLOOD COUNT 4.76 10^6/uL (4.30-6.10); WHITE BLOOD COUNT 6.4 10^3/uL (4.0-10.0)
[2024-04-07 18:02] LABS: BLOOD UREA NITROGEN 7 MG/DL (9-23); CALCIUM LEVEL 9.5 MG/DL (8.5-10.1); CARBON DIOXIDE LEVEL 30 MMOL/L (20-31); CHLORIDE LEVEL 109 MMOL/L (98-107); CREATININE FOR GFR 0.84 MG/DL (0.70-1.30); GLOMERULAR FILTRATION RATE > 60.0 (>60); GLUCOSE, FASTING 102 MG/DL (60-100); POTASSIUM SERUM 3.8 MMOL/L (3.5-5.1); SALICYLATE LEVEL < 3.0 MG/DL (<30); SODIUM LEVEL 143 MMOL/L (136-145)
[2024-04-07 18:08] LABS: APPEARANCE, URINE CLEAR (CLEAR); BACTERIA, URINE AUTO NEGATIVE (NEGATIVE); BILIRUBIN, URINE AUTO NEGATIVE (NEGATIVE); BLOOD, URINE BLOOD NEGATIVE (NEGATIVE); COLOR, URINE STRAW (YELLOW); GLUCOSE, URINE (UA) AUTO NEGATIVE (NEGATIVE); KETONE, URINE AUTO NEGATIVE (NEGATIVE); LEUKOCYTE ESTERASE, URINE AUTO NEGATIVE (NEGATIVE); NITRITE, URINE AUTO NEGATIVE (NEGATIVE); PROTEIN, URINE AUTO NEGATIVE (NEGATIVE); RBC, URINE AUTO 0 /HPF (0-3); SPECIFIC GRAVITY URINE AUTO 1.004 (1.002-1.035); SQUAMOUS EPITHELIAL CELL UR AU 0 /HPF (0-6); UROBILINOGEN, URINE AUTO 0.2 mg/dL (0.0-2.0); WBC, URINE AUTO 0 /HPF (0-3)
[2024-04-07 18:47] LABS: AMPHETAMINES LEVEL URINE NEGATIVE (NEGATIVE); BARBITURATES URINE NEGATIVE (NEGATIVE); BENZODIAZEPINES URINE NEGATIVE (NEGATIVE); COCAINE METABOLITE URINE NEGATIVE (NEGATIVE); METHADONE URINE NEGATIVE (NEGATIVE); OPIATES URINE NEGATIVE (NEGATIVE); PHENCYCLIDINE URINE NEGATIVE (NEGATIVE)
[2024-04-07 18:48] LABS: CANNABINOIDS URINE POSITIVE (NEGATIVE)
[2024-04-07 19:18] VITALS: BP 129/80; TEMP 98.5; O2SAT 100
== END 2024-04-07 19:22 | disposition home or self-care (01) ==
LOC: M ED 14:44
DX: Z00.00 Encounter for general adult medical examination without abnormal findings (principal); Z79.899 Other long term (current) drug therapy

== ENCOUNTER 2024-04-12 00:27 | Emergency (ER) | payer OTHER ==
[~2024-04-12] VITALS: Ht 175.3 cm; Wt 63.2 kg
[2024-04-12 01:16] LABS: BASO % 0.7 % (0.0-1.0); EOS # 0.1 10^3/uL (0.0-0.5); EOS % 2.6 % (0.0-3.0); HEMATOCRIT 43.6 % (42.0-52.0); LYMPH # 1.9 10^3/uL (1.5-5.0); LYMPH % 34.4 % (24.0-44.0); MEAN CORPUSCULAR HEMOGLOBIN 31.2 pg (27.0-33.0); MEAN CORPUSCULAR HGB CONC 34.4 g/dl (32.0-36.5); MEAN CORPUSCULAR VOLUME 90.6 fl (80.0-96.0); MONO # 0.6 10^3/uL (0.0-0.8); NEUTROPHILS # 2.8 10^3/uL (1.5-8.5); NEUTROPHILS % 51.1 % (36.0-66.0); PLATELET COUNT, AUTOMATED 229 10^3/uL (150-450); RED BLOOD COUNT 4.81 10^6/uL (4.30-6.10); WHITE BLOOD COUNT 5.4 10^3/uL (4.0-10.0)
[2024-04-12 01:40] LABS: BLOOD UREA NITROGEN 13 MG/DL (9-23); CALCIUM LEVEL 9.1 MG/DL (8.5-10.1); CARBON DIOXIDE LEVEL 26 MMOL/L (20-31); CHLORIDE LEVEL 109 MMOL/L (98-107); CK-MB VALUE MASS < 1.0 NG/ML (<3.6); CPK CREATINE PHOSPHOKINASE 112 U/L (46-171); GLOMERULAR FILTRATION RATE > 60.0 (>60); GLUCOSE, FASTING 118 MG/DL (60-100); MB/CK RELATIVE INDEX 0.89 (< OR =4); POTASSIUM SERUM 3.7 MMOL/L (3.5-5.1); SODIUM LEVEL 141 MMOL/L (136-145)
[2024-04-12 02:54] VITALS: TEMP 97.1
[2024-04-12 03:49] LABS: CPK CREATINE PHOSPHOKINASE 113 U/L (46-171)
[2024-04-12 03:53] LABS: CK-MB VALUE MASS < 1.0 NG/ML (<3.6); MB/CK RELATIVE INDEX 0.88 (< OR =4)
[2024-04-12 05:30] VITALS: BP 120/78; O2SAT 99
== END 2024-04-12 06:59 | disposition home or self-care (01) ==
LOC: M ED 00:27
DX: R07.89 Other chest pain (principal); R00.1 Bradycardia, unspecified; F17.210 Nicotine dependence, cigarettes, uncomplicated; F12.10 Cannabis abuse, uncomplicated; Z79.899 Other long term (current) drug therapy

== ENCOUNTER 2024-04-20 17:39 | Emergency (ER) | payer OTHER ==
[~2024-04-20] VITALS: Ht 175.3 cm; Wt 62.1 kg
[2024-04-20 17:39] VITALS: BP 132/73; TEMP 98.2; O2SAT 95
== END 2024-04-20 21:13 | disposition left against medical advice (07) ==
LOC: M ED 17:39
DX: Z53.21 Procedure and treatment not carried out due to patient leaving prior to being seen by health care provider (principal)

== ENCOUNTER 2024-05-07 16:07 | Emergency (ER) | payer OTHER ==
[~2024-05-07] VITALS: Ht 175.3 cm; Wt 63.6 kg
[2024-05-07] MEDS ORDERED: PROT1TAB2 PO (20:11)
[2024-05-07 20:20] VITALS: BP 126/77; TEMP 98.1; O2SAT 97
== END 2024-05-07 20:21 | disposition home or self-care (01) ==
LOC: M ED 16:07
DX: R09.A2 Foreign body sensation, throat (principal)

== ENCOUNTER 2024-05-10 11:03 | Emergency (ER) | payer OTHER ==
[~2024-05-10] VITALS: Ht 175.3 cm; Wt 62.4 kg
[~2024-05-10 11:03] MED LIST changes: +PROT1TAB2 PO
[2024-05-10 11:59] LABS: BASO % 0.5 % (0.0-1.0); EOS # 0.1 10^3/uL (0.0-0.5); HEMATOCRIT 44.7 % (42.0-52.0); HEMOGLOBIN 15.2 g/dl (13.5-17.5); LYMPH # 1.4 10^3/uL (1.5-5.0); LYMPH % 21.7 % (24.0-44.0); MEAN CORPUSCULAR HEMOGLOBIN 30.3 pg (27.0-33.0); MEAN CORPUSCULAR VOLUME 89.2 fl (80.0-96.0); MONO % 15.9 % (2.0-8.0); NEUTROPHILS # 3.9 10^3/uL (1.5-8.5); NEUTROPHILS % 59.6 % (36.0-66.0); PLATELET COUNT, AUTOMATED 243 10^3/uL (150-450); RED BLOOD COUNT 5.01 10^6/uL (4.30-6.10); WHITE BLOOD COUNT 6.6 10^3/uL (4.0-10.0)
[2024-05-10 12:19] LABS: INR 1.02; PARTIAL THROMBOPLASTIN TIME 26.4 SECONDS (24.8-34.2); PROTHROMBIN TIME 13.1 SECONDS (12.5-14.5)
[2024-05-10 12:30] LABS: ALBUMIN 4.1 G/DL (3.2-5.2); ALKALINE PHOSPHATASE 75 U/L (46-116); ALT/SGPT 23 U/L (7.0-40); AST/SGOT 11 U/L (<34); BILIRUBIN,DIRECT 0.1 MG/DL (<0.4); BILIRUBIN,TOTAL 0.4 MG/DL (0.3-1.2); BLOOD UREA NITROGEN 11 MG/DL (9-23); CARBON DIOXIDE LEVEL 30 MMOL/L (20-31); CHLORIDE LEVEL 106 MMOL/L (98-107); CREATININE FOR GFR 0.78 MG/DL (0.70-1.30); GLOMERULAR FILTRATION RATE > 60.0 (>60); GLUCOSE, FASTING 96 MG/DL (60-100); POTASSIUM SERUM 3.9 MMOL/L (3.5-5.1); SODIUM LEVEL 140 MMOL/L (136-145); TOTAL PROTEIN 7.2 G/DL (5.7-8.2)
[2024-05-10 13:11] VITALS: BP 107/59; TEMP 97.3; O2SAT 97
[2024-05-10] MEDS ORDERED: MIRA3350 PO (14:07)
== END 2024-05-10 14:19 | disposition home or self-care (01) ==
LOC: M ED 11:03
DX: R10.32 Left lower quadrant pain (principal); K59.00 Constipation, unspecified; K62.5 Hemorrhage of anus and rectum; F31.9 Bipolar disorder, unspecified; F32.A Depression, unspecified

== ENCOUNTER → 2024-05-29 | Outpatient (REF) | payer OTHER ==
[~2024-05-29] MED LIST changes: +MIRA3350 PO
[2024-05-29 14:03] LABS: CHOLESTEROL RISK RATIO 3.14 (<5); HDL CHOLESTEROL 46.1 MG/DL (>40); LDL CHOLESTEROL 78.5 MG/DL (<100); NON-HDL-C 98.9 MG/DL
[2024-05-29 14:27] LABS: HEMOGLOBIN A1c 5.7 % (4.0-6.0)
== END ==
LOC: M LAB REF 13:31
PROVIDERS: ATTEND Nurse Practitioner Family
DX: Z13.228 Encounter for screening for other metabolic disorders (principal); Z13.6 Encounter for screening for cardiovascular disorders

== ENCOUNTER → 2024-09-17 | Outpatient (CLI) | payer OTHER | LOC: M RAD 11:54 | PROVIDERS: ATTEND Nurse Practitioner Family | DX: M54.2 Cervicalgia (principal) ==

== ENCOUNTER 2024-10-05 11:34 | Emergency (ER) | payer OTHER ==
[~2024-10-05] VITALS: Ht 175.3 cm; Wt 59.5 kg
[2024-10-05] MEDS: ASPIRIN 81MG CHEW TABLET PO ONE (13:37)
[2024-10-05 14:05] LABS: BASO % 0.7 % (0.0-1.0); EOS # 0.1 10^3/uL (0.0-0.5); EOS % 2.5 % (0.0-3.0); HEMATOCRIT 44.8 % (42.0-52.0); HEMOGLOBIN 15.1 g/dl (13.5-17.5); LYMPH # 1.7 10^3/uL (1.5-5.0); LYMPH % 30.5 % (24.0-44.0); MEAN CORPUSCULAR HEMOGLOBIN 30.8 pg (27.0-33.0); MEAN CORPUSCULAR HGB CONC 33.7 g/dl (32.0-36.5); MEAN CORPUSCULAR VOLUME 91.4 fl (80.0-96.0); MONO # 0.5 10^3/uL (0.0-0.8); NEUTROPHILS # 3.2 10^3/uL (1.5-8.5); NEUTROPHILS % 56.9 % (36.0-66.0); PLATELET COUNT, AUTOMATED 209 10^3/uL (150-450); WHITE BLOOD COUNT 5.6 10^3/uL (4.0-10.0)
[2024-10-05 14:31] LABS: CK-MB VALUE MASS < 1.0 NG/ML (<3.6)
[2024-10-05 14:33] LABS: BLOOD UREA NITROGEN 11 MG/DL (9-23); CALCIUM LEVEL 8.9 MG/DL (8.5-10.1); CARBON DIOXIDE LEVEL 27 MMOL/L (20-31); CHLORIDE LEVEL 108 MMOL/L (98-107); CREATININE FOR GFR 0.82 MG/DL (0.70-1.30); GLOMERULAR FILTRATION RATE > 60.0 (>60); GLUCOSE, FASTING 87 MG/DL (60-100); POTASSIUM SERUM 4.3 MMOL/L (3.5-5.1); SODIUM LEVEL 143 MMOL/L (136-145)
[2024-10-05 14:36] LABS: CPK CREATINE PHOSPHOKINASE 86 U/L (46-171); MB/CK RELATIVE INDEX 1.16 (< OR =4)
[2024-10-05] MEDS ORDERED: IBUP-1022 PO (14:52)
[2024-10-05 15:00] VITALS: BP 109/72; TEMP 97.6; O2SAT 98
== END 2024-10-05 15:49 | disposition home or self-care (01) ==
LOC: M ED 11:34
DX: M94.0 Chondrocostal junction syndrome [Tietze] (principal); Z90.49 Acquired absence of other specified parts of digestive tract; Z87.891 Personal history of nicotine dependence; R00.1 Bradycardia, unspecified

== ENCOUNTER 2024-10-06 11:40 | Emergency (ER) | payer OTHER ==
[~2024-10-06] VITALS: Ht 175.3 cm; Wt 62.1 kg
[2024-10-06 15:44] VITALS: BP 101/55; TEMP 97.4; O2SAT 96
== END 2024-10-06 16:50 | disposition left against medical advice (07) ==
LOC: EDBD 11:40 → M ED 11:40
DX: Z53.21 Procedure and treatment not carried out due to patient leaving prior to being seen by health care provider (principal)

== ENCOUNTER → 2024-10-16 | Outpatient (CLI) | payer OTHER ==
[2024-10-16 18:58] LABS: THYROID STIMULATING HORMONE 0.832 uIU/ML (0.55-4.78)
[2024-10-16 19:02] LABS: FREE T4 1.1 NG/DL (0.89-1.76)
== END ==
LOC: M LAB REF 15:44 → M LAB 15:44
PROVIDERS: ATTEND Nurse Practitioner Family
DX: Z01.818 Encounter for other preprocedural examination (principal)

== ENCOUNTER → 2024-10-17 | Outpatient (CLI) | payer OTHER | LOC: M EKG 10:19 | PROVIDERS: ATTEND Nurse Practitioner Family | DX: Z01.818 Encounter for other preprocedural examination (principal) ==

== ENCOUNTER → 2024-10-18 | Outpatient (CLI) | payer OTHER | LOC: M LAB 11:09 → M EKG 11:09 | PROVIDERS: ATTEND Nurse Practitioner Family | DX: R07.89 Other chest pain (principal) ==

== ENCOUNTER → 2024-10-26 | Outpatient (CLI) | payer OTHER | LOC: M LAB 10:01 | PROVIDERS: ATTEND Nurse Practitioner Family | DX: R07.89 Other chest pain (principal); R00.0 Tachycardia, unspecified ==

== ENCOUNTER → 2024-12-04 | Outpatient (REF) | payer OTHER ==
[~2024-12-04] MED LIST changes: +NYST1CRE15 TOP
[2024-12-04 18:55] LABS: BASO % 0.9 % (0.0-1.0); EOS # 0.1 10^3/uL (0.0-0.5); EOS % 2.6 % (0.0-3.0); HEMATOCRIT 43.7 % (42.0-52.0); HEMOGLOBIN 14.3 g/dl (13.5-17.5); LYMPH % 23.9 % (24.0-44.0); MEAN CORPUSCULAR HEMOGLOBIN 30.8 pg (27.0-33.0); MEAN CORPUSCULAR HGB CONC 32.7 g/dl (32.0-36.5); MONO # 0.5 10^3/uL (0.0-0.8); MONO % 11.1 % (2.0-8.0); NEUTROPHILS # 2.6 10^3/uL (1.5-8.5); NEUTROPHILS % 61.3 % (36.0-66.0); PLATELET COUNT, AUTOMATED 204 10^3/uL (150-450); RED BLOOD COUNT 4.65 10^6/uL (4.30-6.10); WHITE BLOOD COUNT 4.2 10^3/uL (4.0-10.0)
[2024-12-04 18:57] LABS: BLOOD UREA NITROGEN 10 MG/DL (9-23); CALCIUM LEVEL 8.9 MG/DL (8.5-10.1); CARBON DIOXIDE LEVEL 30 MMOL/L (20-31); CHLORIDE LEVEL 104 MMOL/L (98-107); CREATININE FOR GFR 0.77 MG/DL (0.70-1.30); GLOMERULAR FILTRATION RATE > 90.0 (>60); GLUCOSE, FASTING 113 MG/DL (60-100); POTASSIUM SERUM 4.5 MMOL/L (3.5-5.1); SODIUM LEVEL 141 MMOL/L (136-145)
== END ==
LOC: M LAB REF 17:45
PROVIDERS: ATTEND Nurse Practitioner Family
DX: Z01.818 Encounter for other preprocedural examination (principal)

== ENCOUNTER 2024-12-09 09:19 | Day surgery (SDC) | payer OTHER ==
[~2024-12-09] VITALS: Ht 175.3 cm; Wt 64.4 kg
[2024-12-09] MEDS: OXYMETAZOLINE 0.05% NASAL SPRAY As Ordered ONE (07:03)
[~2024-12-09 09:19] MED LIST changes: +LIDOCAINE 2% 100MG/5ML SDV (FOR ANES.) As Ordered ONE; +ONDANSETRON 4MG 2ML VIAL As Ordered ONE; +ROCURONIUM BROMIDE 50MG/5ML VIAL As Ordered ONE; +SUGAMMADEX SODIUM 500 MG/5 ML VIAL (BRIDION) As Ordered ONE; +propofoL 200 MG/20 ML VIAL As Ordered ONE
[2024-12-09] MEDS ORDERED: MIDAZOLAM INJ 2MG/2ML VIAL As Ordered ONE (09:41)
[2024-12-09] MEDS ORDERED: fentaNYL 100 MCG/2 ML INJECTION As Ordered ONE (09:41)
[2024-12-09] MEDS ORDERED: LR 1,000 ML IV SCH ×2 (09:45→12:15)
[2024-12-09] MEDS: AMPICILLIN SOD/SULBACTAM SOD 3 GM in D5W MINI-BAG 100 ML IV ONE (11:45)
[2024-12-09] MEDS: CHLORHEXIDINE GLUCONATE 0.12 % 15ML UDC (PERIDEX ORAL RINSE) As Ordered ONE (11:50)
[2024-12-09] MEDS: LIDOCAINE 2% W/ EPINEPHRINE 1.7 ML DENTAL INJ As Ordered ONE (11:54)
[2024-12-09] MEDS ORDERED: ACETAMINOPHEN 1000MG/100ML IV BAG As Ordered ONE (11:56)
[2024-12-09] MEDS ORDERED: oxyCODONE 5MG TAB PO PRN (12:15)
[2024-12-09] MEDS ORDERED: fentaNYL 100 MCG/2 ML INJECTION IV PRN (12:15)
[2024-12-09] MEDS ORDERED: ONDANSETRON 4MG 2ML VIAL IV PRN (12:15)
[2024-12-09] MEDS ORDERED: HYDROMORPHONE HCL 0.5 MG/ 0.5 ML SYRINGE IV PRN (12:15)
[2024-12-09 12:51] VITALS: BP 114/74; TEMP 97.8; O2SAT 98
== END 2024-12-09 13:17 | disposition home or self-care (01) ==
LOC: M SDC 09:19
PROVIDERS: ATTEND Dentist
DX: K02.9 Dental caries, unspecified (principal); F40.232 Fear of other medical care; Z79.899 Other long term (current) drug therapy
CPT/HCPCS: 88300; D7140; D7210; J0131; J0295; J1100; J2250; J2405; J3010

== ENCOUNTER 2025-02-07 15:35 | Emergency (ER) | payer OTHER ==
[~2025-02-07] VITALS: Ht 175.3 cm; Wt 64.0 kg
[~2025-02-07 15:35] MED LIST changes: -LIDOCAINE 2% 100MG/5ML SDV (FOR ANES.) As Ordered ONE; -ONDANSETRON 4MG 2ML VIAL As Ordered ONE; -ROCURONIUM BROMIDE 50MG/5ML VIAL As Ordered ONE; -SUGAMMADEX SODIUM 500 MG/5 ML VIAL (BRIDION) As Ordered ONE; -propofoL 200 MG/20 ML VIAL As Ordered ONE
[2025-02-07 17:07] VITALS: BP 110/61; TEMP 99; O2SAT 95
== END 2025-02-07 17:09 | disposition home or self-care (01) ==
LOC: M ED 15:35
DX: R00.2 Palpitations (principal); F43.10 Post-traumatic stress disorder, unspecified; F12.10 Cannabis abuse, uncomplicated; Z79.1 Long term (current) use of non-steroidal anti-inflammatories (NSAID); Z79.899 Other long term (current) drug therapy

== ENCOUNTER 2025-02-28 13:42 | Emergency (ER) | payer OTHER ==
[~2025-02-28] VITALS: Ht 175.3 cm; Wt 61.4 kg
[2025-02-28 14:44] LABS: BASO # 0.0 10^3/uL (0.0-0.2); BASO % 0.8 % (0.0-1.0); EOS # 0.1 10^3/uL (0.0-0.5); EOS % 1.3 % (0.0-3.0); LYMPH # 0.8 10^3/uL (1.5-5.0); LYMPH % 20.8 % (24.0-44.0); MONO # 0.4 10^3/uL (0.0-0.8); MONO % 8.9 % (2.0-8.0); NEUTROPHILS # 2.7 10^3/uL (1.5-8.5); NEUTROPHILS % 67.9 % (36.0-66.0); PLATELET COUNT, AUTOMATED 198 10^3/uL (150-450)
[2025-02-28 15:19] LABS: CALCIUM LEVEL 8.5 MG/DL (8.5-10.1); CARBON DIOXIDE LEVEL 29 MMOL/L (20-31); CHLORIDE LEVEL 103 MMOL/L (98-107); CREATININE FOR GFR 0.89 MG/DL (0.70-1.30); GLOMERULAR FILTRATION RATE > 90.0 (>60); POTASSIUM SERUM 4.1 MMOL/L (3.5-5.1); SODIUM LEVEL 144 MMOL/L (136-145)
[2025-02-28 18:15] VITALS: BP 106/63; TEMP 97.5; O2SAT 100
== END 2025-02-28 18:32 | disposition home or self-care (01) ==
LOC: M ED 13:42
DX: R00.0 Tachycardia, unspecified (principal); F17.210 Nicotine dependence, cigarettes, uncomplicated